=== PATIENT | female | born 1980 | race Caucasian/White ===

== ENCOUNTER 2017-05-17 08:17 | Emergency (ER) | payer OTHER ==
[~2017-05-17] VITALS: Ht 162.6 cm; Wt 70.8 kg
[~2017-05-17 08:17] MED LIST: ATIVAN1 MG PO; TORADOL 10 MG T10 MG PO
[2017-05-17] MEDS ORDERED: SEROQUEL 50 MG50 MG PO (08:26)
[2017-05-17] MEDS ORDERED: NEURONTIN 300300 M1 PO (08:26)
[2017-05-17] MEDS ORDERED: LEXAPRO20 MG PO (08:26)
[2017-05-17 08:45] LABS: HEMATOCRIT 43.3 % (37.0-47.0); MCH 33.6 pg (26.0-34.0); MCHC 34.6 g/dL (28.0-37.0); PLATELET COUNT 372 thou/uL (150-400); RBC 4.46 mil/uL (4.20-5.00); RDW 12.8 % (10.5-14.5); WBC 9.6 thou/uL (4.0-11.0)
[2017-05-17 08:45] LABS: URINE BILIRUBIN NEGATIVE (Negative); URINE BLOOD 1+ (Negative); URINE COLOR YELLOW; URINE GLUCOSE-RANDOM* NEGATIVE (Negative); URINE KETONES NEGATIVE (Negative); URINE LEUKOCYTES-REFLEX NEGATIVE (Negative); URINE PROTEIN (DIPSTICK) NEGATIVE (Negative); URINE UROBILINOGEN 0.2 E.U./dl (0.2-1.0)
[2017-05-17 08:46] LABS: MANUAL DIFF YES
[2017-05-17 08:55] LABS: CALCIUM 9.3 mg/dL (8.5-10.1); CREATININE 0.8 mg/dL (0.6-1.0); POTASSIUM 3.3 mmol/L (3.5-5.1)
[2017-05-17 09:00] LABS: TOTAL BILIRUBIN 0.3 mg/dL (<0.1-1.0); TOTAL PROTEIN 7.8 g/dL (6.4-8.2)
[2017-05-17 09:08] LABS: SQUAMOUS >10 Many /LPF (0-3)
[2017-05-17 09:09] LABS: CASTS None Seen /LPF (None Seen); CRYSTALS None Seen /LPF (None Seen); URINE RBC 0-2 Rare /HPF (0-2); URINE WBC-REFLEX 0-5 Rare /HPF (0-5)
[2017-05-17 09:12] LABS: ABSOLUTE NEUTROPHILS 4.4 thou/uL (1.4-8.2); TOTAL CELL COUNT 100
[2017-05-17 10:45] VITALS: BP 125/83
[2017-05-17] MEDS ORDERED: LOPERAMIDE 2 MG2 M1 PO (10:54)
[2017-05-17] MEDS ORDERED: BENTYL 20 MG TA20 M1 PO (10:54)
[2017-05-17] MEDS ORDERED: ZOFRAN ODT4 MG PO (10:54)
[2017-05-17] MEDS ORDERED: TRAMADOL 50 MG50 MG PO (10:56)
== END 2017-05-17 11:12 | disposition home or self-care (01) ==
LOC: ER 08:17
PROVIDERS: Emergency Medicine
DX: K52.9 Noninfective gastroenteritis and colitis, unspecified (principal); F41.9 Anxiety disorder, unspecified; F32.9 Major depressive disorder, single episode, unspecified; F10.99 Alcohol use, unspecified with unspecified alcohol-induced disorder